=== PATIENT | male | born 1985 | race Caucasian/White ===

== ENCOUNTER 2016-11-27 16:00 | Emergency (ER) | payer OTHER ==
[~2016-11-27] VITALS: Ht 182.9 cm; Wt 75.0 kg
[2016-11-27] MEDS ORDERED: MOTRIN600 MG PO (19:25)
[2016-11-27 20:06] VITALS: BP 135/82
== END 2016-11-27 20:08 | disposition home or self-care (01) ==
LOC: EXP 16:00 → EME 16:00 → EXP 20:08
PROC: 0RSKXZZ Reposition Left Shoulder Joint, External Approach (ICD-10-PCS; principal; 2016-11-27)
DX: S43.015A Anterior dislocation of left humerus, initial encounter (principal); X50.0XXA Overexertion from strenuous movement or load, initial encounter; Y93.19 Activity, other involving water and watercraft
CPT/HCPCS: 73030; 99281; 99285; J3010